=== PATIENT | female | born 1995 | race Caucasian/White ===

== ENCOUNTER 2019-01-04 18:30 | Emergency (ER) | payer BC ==
[2019-01-04 18:42] VITALS: TEMP 98.3
[2019-01-04 19:55] LABS: Basophils # (A) 0.1 k/uL (0-0.2); Basophils % (A) 1 %; Eosinophils # (A) 0.2 k/uL (0-0.7); Eosinophils % (A) 3 %; HCT 45.4 % (34.0-46.0); HGB 15.2 gm/dL (11.4-16.0); Lymphocytes # (A) 2.8 k/uL (1.0-4.8); Lymphocytes % (A) 44 %; MCH 30.3 pg (25.0-35.0); MCHC 33.4 g/dL (31.0-37.0); MCV 90.7 fL (80.0-100.0); Mean Platelet Volume 6.7; Monocytes # (A) 0.3 k/uL (0-1.0); Monocytes % (A) 4 %; Neutrophils % (A) 47 %; Platelet Count 263 k/uL (150-450); RBC 5.01 m/uL (3.80-5.40); RDW 12.4 % (11.5-15.5); WBC 6.4 k/uL (3.8-10.6)
[2019-01-04 20:03] LABS: ALT 20 U/L (9-52); AST 19 U/L (14-36); Albumin 5.5 g/dL (3.5-5.0); Alkaline Phosphatase 53 U/L (38-126); Anion Gap 12 mmol/L; Blood Urea Nitrogen 16 mg/dL (7-17); Calcium 10.7 mg/dL (8.4-10.2); Carbon Dioxide 24 mmol/L (22-30); Chloride 107 mmol/L (98-107); Glucose 78 mg/dL (74-99); Potassium 3.8 mmol/L (3.5-5.1); Sodium 143 mmol/L (137-145)
[2019-01-04 20:29] VITALS: RESP 16
--- NOTE | 2019-01-04 20:31 | US ---
EXAMINATION TYPE: US transvaginal DATE OF EXAM: 01/04/2019 COMPARISON: NONE CLINICAL HISTORY: LLQ pain. Pt states LLQ pain x 3 weeks TECHNIQUE: Transvaginal (TV). Transvaginal sonographic images of the pelvis were acquired. Date of LMP: 12/25/2018 EXAM MEASUREMENTS: Uterus: 7.9 x 3.4 x 3.9 cm Endometrial Stripe: 0.3 cm Right Ovary: 3.2 x 1.9 x 2.8 cm Left Ovary: 3.5 x 2.1 x 2.0 cm 1. Uterus: Anteverted wnl 2. Endometrium: wnl 3. Right Ovary: wnl 4. Left Ovary: wnl Spectral, color and waveform doppler imaging shows good arterial and venous flow within the ovaries ; there is no evidence for ovarian torsion. 5. Bilateral Adnexa: wnl 6. Posterior cul-de-sac: wnl No abnormality visualized to account for pt's symptoms IMPRESSION: Negative transvaginal pelvic sonogram. No evidence of ovarian torsion. no adnexal mass or free fluid.
[2019-01-04 21:09] LABS: Amorphous Sediment,Urine Rare /hpf; Appearance,Urine Cloudy (Clear); Bacteria,Urine Rare /hpf; Bilirubin,Urine Negative (Negative); Blood,Urine Trace (Negative); Color,Urine Yellow; Glucose,Urine (UA) Negative (Negative); Hyaline Casts,Urine 3 /lpf (0-2); Ketones,Urine Negative (Negative); Leukocyte Esterase,Urine Moderate (Negative); Mucus,Urine Rare /hpf; Nitrite,Urine Negative (Negative); PH, Urine 5.5 (5.0-8.0); Protein,Urine Negative (Negative); RBC,Urine 3 /hpf (0-5); Specific Gravity,Urine 1.014 (1.001-1.035); Squamous Epithelial Cell,Urine 11 /hpf (0-4); Urobilinogen,Urine <2.0 mg/dL (<2.0); WBC,Urine 47 /hpf (0-5)
[2019-01-04] MEDS ORDERED: AZITHROMYCIN 500 MG TAB PO STA (21:56)
--- NOTE | 2019-01-04 21:56 | ED ---
Abdominal Pain HPI - General Chief Complaint: Abdominal Pain Stated Complaint: Pelvic Pain Source: patient Mode of arrival: ambulatory Limitations: no limitations - History of Present Illness Initial Comments: 23yo female presenting today for cc of left pelvic pain x 3 weeks. Pt states she has been having pelvic pain on the left side for 3 weeks. She states it feels like ovarian pain. She states it comes and goes and radiates to the back at times. Pt states since her last period she has had discharge, that is brown in color lasting the past 10 days. pt denies pain with sex, dysuria, urgency frequency, hematuria, flank pain, nausea, vomiting, upper abdominal pain, fever, chills night sweats. Pt state she has had the same sexual partner for the past 2 years. She states she has not concerned for infidelity. Remaining review of systems negative, Patient denies any recent shortness of breath, chest pain, numbness or tingling, constipation or diarrhea, headaches or visual changes, or any other complaints. - Related Data Home Medications Medication Instructions Recorded Confirmed Albuterol Inhaler [Ventolin Hfa 2 puff INHALATION RT-Q6H PRN 01/04/19 01/04/19 Inhaler] Vitamin C/Biotin [Hair, Skin and 1 tab PO DAILY 01/04/19 01/04/19 Nails] Allergies Allergy/AdvReac Type Severity Reaction Status Date / Time Penicillins Allergy Anaphylaxis Verified 01/04/19 20:44 ibuprofen [From Motrin] AdvReac Nausea & Verified 01/04/19 20:44 Vomiting Review of Systems ROS Statement: Those systems with pertinent positive or pertinent negative responses have been documented in the HPI. ROS Other: All systems not noted in ROS Statement are negative. Past Medical History Past Medical History: Asthma History of Any Multi-Drug Resistant Organisms: None Reported Past Surgical History: Adenoidectomy, Tonsillectomy Past Psychological History: Anxiety, Depression Smoking Status: Current every day smoker Past Alcohol Use History: None Reported Past Drug Use History: Marijuana General Exam - General Exam Comments Initial Comments: General: The patient is awake and alert, in no distress, and does not appear acutely ill. Eye: Pupils are equal, round and reactive to light, extra-ocular movements are intact. No nystagmus. There is normal conjunctiva bilaterally. No signs of icterus. Ears, nose, mouth and throat: There are moist mucous membranes and no oral lesions. Neck: The neck is supple, there is no tenderness or JVD. Cardiovascular: There is a regular rate and rhythm. No murmur, rub or gallop is appreciated. Respiratory: Lungs are clear to auscultation, respirations are non-labored, breath sounds are equal. No wheezes, stridor, rales, or rhonchi. Gastrointestinal: Soft, non-distended, non-tender abdomen without masses or organomegaly noted. Mild left lower pelvic pain. There is no rebound or guarding present. No CVA tenderness. Bowel sounds are unremarkable. examination: No external lesions, vaginal mucosa pink well rugated. Small amount of discharge in the vault. No cervical motion or adnexal tenderness. No obvious cervical lesion. No cervical or adnexal masses palpated. Musculoskeletal: Normal ROM, no tenderness. Strength 5/5. Sensation intact. Radial pulses equal bilaterally 2+. Neurological: A&O x 3. CN II-XII intact, There are no obvious motor or sensory deficits. Coordination appears grossly intact. Speech is normal. Skin: Skin is warm and dry and no rashes or lesions are noted. Psychiatric: Cooperative, appropriate mood & affect, normal judgment. Limitations: no limitations Course Vital Signs 01/04/19 01/04/19 01/04/19 18:39 20:27 22:14 Temperature 98.3 F Pulse Rate 78 69 60 Respiratory 20 16 16 Rate Blood Pressure 130/85 120/93 134/111 O2 Sat by Pulse 99 100 98 Oximetry Medical Decision Making - Medical Decision Making Well-appearing 23-year-old female presented for left pelvic pain. Patient states she has had discharge since her menses 10 days ago. On physical examination patient is mild tenderness she states she does not really have current pain without deep palpation. There is no abdominal tenderness. No rigidity or guarding. No adnexal tenderness on examination or cervical motion. No palpable masses. Small amount of discharge in vault, there is no odor. appears physiological. Swabs for STI pending. Ultrasound of the pelvis with Doppler revealed no acute abnormalities no evidence of abscess no ovarian torsion or ectopic . Urine hCG negative. At this time is unclear the etiology of left lower pelvic pain. Patient is instructed to follow-up with [facility] primary care provider. Pt was given 1g of azithromycin. WIll treat remaining STI pending results given anaphylaxtic allergy to PCNs. Patient is agreeable with plan and outpatient f/u. Case discussed with Dr. Smallwood prior to discharge. - Lab Data Result diagrams: 01/04/19 19:34 01/04/19 19:34 Lab Results 01/04/19 01/04/19 01/04/19 Range/Units 19:34 19:34 19:39 WBC 6.4 (3.8-10.6) k/uL RBC 5.01 (3.80-5.40) m/uL Hgb 15.2 (11.4-16.0) gm/dL Hct 45.4 (34.0-46.0) % MCV 90.7 (80.0-100.0) fL MCH 30.3 (25.0-35.0) pg MCHC 33.4 (31.0-37.0) g/dL RDW 12.4 (11.5-15.5) % Plt Count 263 (150-450) k/uL Neutrophils % 47 % Lymphocytes % 44 % Monocytes % 4 % Eosinophils % 3 % Basophils % 1 % Neutrophils # 3.0 (1.3-7.7) k/uL Lymphocytes # 2.8 (1.0-4.8) k/uL Monocytes # 0.3 (0-1.0) k/uL Eosinophils # 0.2 (0-0.7) k/uL Basophils # 0.1 (0-0.2) k/uL Sodium 143 (137-145) mmol/L Potassium 3.8 (3.5-5.1) mmol/L Chloride 107 (98-107) mmol/L Carbon Dioxide 24 (22-30) mmol/L Anion Gap 12 mmol/L BUN 16 (7-17) mg/dL Creatinine 0.69 (0.52-1.04) mg/dL Est GFR (CKD-EPI)AfAm >90 (>60 ml/min/1.73 sqM) Est GFR (CKD-EPI)NonAf >90 (>60 ml/min/1.73 sqM) Glucose 78 (74-99) mg/dL Calcium 10.7 H (8.4-10.2) mg/dL Total Bilirubin 1.0 (0.2-1.3) mg/dL AST 19 (14-36) U/L ALT 20 (9-52) U/L Alkaline Phosphatase 53 (38-126) U/L Total Protein 9.0 H (6.3-8.2) g/dL Albumin 5.5 H (3.5-5.0) g/dL Urine Color Urine Appearance (Clear) Urine pH (5.0-8.0) Ur Specific [place] (1.001-1.035) Urine Protein (Negative) Urine Glucose (UA) (Negative) Urine Ketones (Negative) Urine Blood (Negative) Urine Nitrite (Negative) Urine Bilirubin (Negative) Urine Urobilinogen (<2.0) mg/dL Ur Leukocyte Esterase (Negative) Urine RBC (0-5) /hpf Urine WBC (0-5) /hpf Ur Squamous Epith Cells (0-4) /hpf Amorphous Sediment (None) /hpf Urine Bacteria (None) /hpf Hyaline Casts (0-2) /lpf Urine Mucus (None) /hpf Urine HCG, Qual Not Detected (Not Detectd) 01/04/19 Range/Units 19:39 WBC (3.8-10.6) k/uL RBC (3.80-5.40) m/uL Hgb (11.4-16.0) gm/dL Hct (34.0-46.0) % MCV (80.0-100.0) fL MCH (25.0-35.0) pg MCHC (31.0-37.0) g/dL RDW (11.5-15.5) % Plt Count (150-450) k/uL Neutrophils % % Lymphocytes % % Monocytes % % Eosinophils % % Basophils % % Neutrophils # (1.3-7.7) k/uL Lymphocytes # (1.0-4.8) k/uL Monocytes # (0-1.0) k/uL Eosinophils # (0-0.7) k/uL Basophils # (0-0.2) k/uL Sodium (137-145) mmol/L Potassium (3.5-5.1) mmol/L Chloride (98-107) mmol/L Carbon Dioxide (22-30) mmol/L Anion Gap mmol/L BUN (7-17) mg/dL Creatinine (0.52-1.04) mg/dL Est GFR (CKD-EPI)AfAm (>60 ml/min/1.73 sqM) Est GFR (CKD-EPI)NonAf (>60 ml/min/1.73 sqM) Glucose (74-99) mg/dL Calcium (8.4-10.2) mg/dL Total Bilirubin (0.2-1.3) mg/dL AST (14-36) U/L ALT (9-52) U/L Alkaline Phosphatase (38-126) U/L Total Protein (6.3-8.2) g/dL Albumin (3.5-5.0) g/dL Urine Color Yellow Urine Appearance Cloudy H (Clear) Urine pH 5.5 (5.0-8.0) Ur Specific [place] 1.014 (1.001-1.035) Urine Protein Negative (Negative) Urine Glucose (UA) Negative (Negative) Urine Ketones Negative (Negative) Urine Blood Trace H (Negative) Urine Nitrite Negative (Negative) Urine Bilirubin Negative (Negative) Urine Urobilinogen <2.0 (<2.0) mg/dL Ur Leukocyte Esterase Moderate H (Negative) Urine RBC 3 (0-5) /hpf Urine WBC 47 H (0-5) /hpf Ur Squamous Epith Cells 11 H (0-4) /hpf Amorphous Sediment Rare H (None) /hpf Urine Bacteria Rare H (None) /hpf Hyaline Casts 3 H (0-2) /lpf Urine Mucus Rare H (None) /hpf Urine HCG, Qual (Not Detectd) Disposition Clinical Impression: Pelvic pain Disposition: HOME SELF-CARE Condition: Good Instructions (If sedation given, give patient instructions): Pelvic Pain in Women (ED) Additional Instructions: Please use medication as discussed. Please follow-up with family doctor in the next 2 days.. Please return to emergency room if the symptoms increase or worsen or for any other concerns. Is patient prescribed a controlled substance at d/c from ED?: No Referrals: None,Stated [Primary Care Provider] - 1-[address] [facility] [NON-STAFF] - 1-2 days Time of Disposition: 21:39
[2019-01-04 22:16] VITALS: BP 134/111; PULSE 60
== END 2019-01-04 22:19 | disposition home or self-care (01) ==
LOC: EC 18:30
DX: R10.2 Pelvic and perineal pain (principal); M54.9 Dorsalgia, unspecified; J45.909 Unspecified asthma, uncomplicated; F17.200 Nicotine dependence, unspecified, uncomplicated; Z88.0 Allergy status to penicillin; Z88.6 Allergy status to analgesic agent
CPT/HCPCS: 36415; 76830; 80053; 81001; 81025; 85025; 87491; 87591; 87808; 93975; 99284

== ENCOUNTER → 2023-09-12 | Outpatient (CLI) | payer OTHER ==
[2023-09-12 20:26] LABS: ALT 6 U/L (8-44); AST 15 U/L (13-35); Albumin 3.8 g/dL (3.8-4.9); Albumin/Globulin Ratio 1.52 Ratio (1.60-3.17); Alkaline Phosphatase 56 U/L (41-126); Blood Urea Nitrogen 9.6 mg/dL (9.0-27.0); Calcium 9.2 mg/dL (8.7-10.3); Carbon Dioxide 24.2 mmol/L (21.6-31.8); Chloride 101 mmol/L (96-109); Globulin 2.5 g/dL (1.6-3.3); Glucose 91 mg/dL (70-110); Magnesium 1.8 mg/dL (1.5-2.4); Potassium 4.1 mmol/L (3.5-5.5); Sodium 136 mmol/L (135-145); Total Bilirubin 0.3 mg/dL (0.3-1.2); Total Protein 6.3 g/dL (6.2-8.2)
== END | disposition home or self-care (01) ==
LOC: LABWHC1 13:44
PROVIDERS: ATTEND Obstetrics & Gynecology
DX: Z33.1 Pregnant state, incidental (principal); G43.909 Migraine, unspecified, not intractable, without status migrainosus
CPT/HCPCS: 36415; 80053; 83735; 84630

== ENCOUNTER 2023-12-06 17:00 | Inpatient (IN) | payer OTHER ==
[2023-12-06] MEDS ORDERED: CARBOPROST TROMETHAMINE 250 MCG/ML 1 ML AMP IM PRN (19:06)
[2023-12-06] MEDS ORDERED: TERBUTALINE 1 MG/ML VIAL SQ PRN (19:06)
[2023-12-06] MEDS ORDERED: miSOPROStoL 200 MCG TAB PO PRN (19:06)
[2023-12-06] MEDS ORDERED: TRANEXAMIC 1,000 MG/100ML-NACL 1,000 MG in EMPTY BAG 1 BAG IV PRN (19:06)
[2023-12-06] MEDS ORDERED: OXYTOCIN 10 UNIT/ML 1 ML VIAL IM PRN (19:06)
[2023-12-06] MEDS ORDERED: METHYLERGONOVINE 0.2 MG/ML 1 ML AMP IM PRN (19:06)
[2023-12-06] MEDS: LACTATED RINGERS 1,000 ML IV SCH (19:22)
[2023-12-06 19:33] LABS: Basophils % (A) 0 %; Eosinophils # (A) 0.1 k/uL (0-0.7); Eosinophils % (A) 1 %; HCT 35.4 % (34.0-46.0); HGB 11.5 gm/dL (11.4-16.0); Hypochromasia Slight; Lymphocytes # (A) 2.5 k/uL (1.0-4.8); Lymphocytes % (A) 20 %; MCH 28.3 pg (25.0-35.0); MCHC 32.6 g/dL (31.0-37.0); MCV 86.9 fL (80.0-100.0); Mean Platelet Volume 7.5; Monocytes # (A) 0.6 k/uL (0-1.0); Monocytes % (A) 5 %; Neutrophils % (A) 72 %; Platelet Count 287 k/uL (150-450); RBC 4.08 m/uL (3.80-5.40); RDW 13.8 % (11.5-15.5); WBC 12.5 k/uL (3.8-10.6)
[2023-12-06] MEDS ORDERED: NALBUPHINE 10 MG/ML (10 ML MDV) IV PRN (19:34)
--- NOTE | 2023-12-06 20:46 | P.HPOB ---
History of Present Illness H&P Date: 12/06/23 Chief Complaint: Labor at 39-5/7 weeks This is a 28-year-old 2 para 0010 woman who is admitted at 39-5/7 weeks gestation in spontaneous active labor. She her estimated due date is 12/07/2023 based on LMP consistent with first trimester ultrasound. She began having regular painful contractions earlier in the day that have put progress. While observed in labor and delivery triage her cervix progressed from 3-5 cm and her contractions were regular. She was therefore admitted. Her has been complicated by migraine headaches and anxiety. Laboratory data: Blood type O positive, antibody screen negative, rubella immune, VDRL nonreactive, hepatitis B surface antigen negative, hepatitis C negative, HIV negative, RPR negative, gonorrhea and clinic cultures negative, GTT within normal limits, group B strep negative Obstetric history: Missed and 2022. Spontaneous. Past medical history is ID, asthma, migraine headaches, ADHD. Next past surgical history tonsils and adenoidectomy. Family history noncontributory Social history: she is single and the father of baby's name is Bentley who is involved. She does vape. Review of Systems All systems: negative Past Medical History Past Medical History: Asthma Additional Past Medical History / Comment(s): migranes History of Any Multi-Drug Resistant Organisms: None Reported Past Surgical History: Adenoidectomy, Tonsillectomy Past Psychological History: Anxiety, Depression Smoking Status: Never smoker, Vaper Past Alcohol Use History: None Reported Past Drug Use History: None Reported, Marijuana Medications and Allergies Home Medications Medication Instructions Recorded Confirmed Type No Known Home Medications 12/06/23 12/06/23 History Allergies Allergy/AdvReac Type Severity Reaction Status Date / Time Penicillins Allergy Anaphylaxis Verified 12/06/23 17:16 ibuprofen [From Motrin] AdvReac Nausea & Verified 12/06/23 17:16 Vomiting Exam Vital Signs Temp Pulse Resp BP Pulse Ox 12/06/23 19:06 96.5 F L 79 16 107/72 100 12/06/23 17:15 98.1 F 86 16 120/77 98 Intake and Output 12/06/23 12/06/23 12/06/23 06:59 14:59 22:59 Other: Weight 60.781 kg Targeted physical exam is performed: This is a visibly gravid, actively laboring female. On pelvic examination the cervix is 7 cm dilated, 90% effaced and the vertex is in the 0 station. Artificial rupture of membranes is undertaken and clear fluid is noted. She is mark every 2 minutes spontaneously and heart tones are category 1. Results Result Diagrams: 12/06/23 19:04 Abnormal Lab Results - Last 24 Hours (Table) 12/06/23 Range/Units 19:04 WBC 12.5 H (3.8-10.6) k/uL Neutrophils # 9.0 H (1.3-7.7) k/uL Assessment and Plan (1) Spontaneous onset of labor Current Visit: Yes Status: Acute Code(s): HNK8563 - SNOMED Code(s): 42483217 (2) Term Current Visit: Yes Status: Acute Code(s): Z34.90 - ENCNTR FOR SUPRVSN OF NORMAL , UNSP, UNSP TRIMESTER SNOMED Code(s): 08889239 (3) Asthma Current Visit: Yes Status: Acute Code(s): J45.909 - UNSPECIFIED ASTHMA, UNCOMPLICATED SNOMED Code(s): 152954026 Plan: 28-year-old 2 para 0010 woman admitted at 39-5/7 weeks gestation in spontaneous active labor. status currently reassuring. She is group B strep negative and Rh+. Anticipate normal spontaneous vaginal delivery.
[2023-12-07] MEDS: OXYTOCIN 30 UNITS/500 ML NS 30 UNIT in SALINE 1 500ML.BAG IV SCH (00:17)
[2023-12-07] MEDS ORDERED: HYDROCORTISONE 2.5% RECTAL CREAM 30 GM TUBE RECTAL PRN (00:31)
[2023-12-07] MEDS ORDERED: diphenhydrAMINE 50 MG CAP PO PRN (00:31)
[2023-12-07] MEDS ORDERED: diphenhydrAMINE 50 MG/ML 1 ML VIAL IVP PRN ×2 (00:31)
[2023-12-07] MEDS ORDERED: LANOLIN CREAM 1 GM TUBE TOPICAL PRN (00:31)
[2023-12-07] MEDS ORDERED: SIMETHICONE 80 MG CHEWABLE PO PRN (00:31)
[2023-12-07] MEDS ORDERED: diphenhydrAMINE ELIXIR 25 MG/10 ML CUP PO PRN (00:31)
[2023-12-07] MEDS ORDERED: diphenhydrAMINE 25 MG CAP PO PRN (00:31)
[2023-12-07] MEDS ORDERED: ZOLPIDEM 5 MG TAB PO PRN (00:31)
--- NOTE | 2023-12-07 00:31 | P.PROBDLV ---
Vaginal Delivery Note - . Vaginal Delivery Note: Findings: Female in the vertex left occiput anterior position with Apgars of 8 at 1 minute and 9 at 5 minutes weighing 7 lbs. 1 oz., 3220 g. Intact, three-vessel cord placenta with some calcifications of the membranes. Asymmetric second-degree perineal laceration involving the right vulva. EBL approximately 250 mL's. Delivery summary: This is a 28-year-old 2 para 0010 woman who was admitted in spontaneous active labor at 39-5/7 weeks gestation. She then underwent an unremarkable . Following admission she was 7 cm dilated and underwent artificial rupture of membranes. She then requested an epidural anesthetic. By the time was placed she was 9+ centimeters dilated. She began pushing however had a dense epidural with no sensation therefore she was allowed to labor down for some time. When she was initially pushing heart tones were category 2 however results category 1 with relaxation. Approximately half an hour later she did begin to develop strong urge to push. Infant was then at the +1 station. She commenced pushing with excellent maternal effort. She did have some variable heart rate decelerations but excellent progress. When she was she was repositioned, prepped and draped in the dorsal modified Thony position. With additional maternal effort the head delivered from the left occiput anterior position. The anterior followed by the posterior shoulders were delivered without difficulty and the rest the was delivered onto the field. The nose and mouth were bulb suctioned and the infant was placed on the maternal abdomen. Eventually the cord was clamped and cut. Apgars were 8 at 1 minute and 9 at 5 minutes and weight was 7 lbs. 1 oz. The perineum was inspected and a second-degree asymmetric laceration was noted. This was infused with lidocaine and repaired with 3-0 Vicryl suture in the usual fashion. A second 3-0 Vicryl suture was utilized to reapproximate the right vulvar tissue. An intact, three-vessel cord placenta was then expressed in the vagina was further inspected and no additional lacerations were noted. The uterus was massaged and was noted to be firm below the level of the umbilicus. All counts were correct and both mother and infant were doing well post delivery in the room.
[2023-12-07] MEDS: LIDOCAINE 0.5% (PF) 5 MG/ML (50 ML SDV) SQ PRN (00:57)
[2023-12-07] MEDS: ACETAMINOPHEN TAB 325 MG TAB PO PRN (00:59)
[2023-12-07] MEDS: BENZOCAINE/MENTHOL SPRAY 1 GM/SPRAY AEROSOL TOPICAL PRN (01:03)
[2023-12-07] MEDS: IBUPROFEN 600 MG TAB PO PRN (05:18)
[2023-12-07] MEDS: SENNOSIDES-DOCUSATE SODIUM 1 EACH TAB PO SCH (08:02)
[2023-12-08 03:04] VITALS: BP 126/80; PULSE 77; RESP 12; TEMP 97.6
== END 2023-12-08 02:35 | disposition home or self-care (01) | DRG 560 ==
LOC: FBPOP 17:00 → 4FBP 18:49
PROVIDERS: ADMIT Obstetrics & Gynecology; ATTEND Obstetrics & Gynecology
PROC: 10E0XZZ Delivery of Products of Conception, External Approach (ICD-10-PCS; principal; 2023-12-07)
PROC: 0KQM0ZZ Repair Perineum Muscle, Open Approach (ICD-10-PCS; 2023-12-07)
PROC: 10907ZC Drainage of Amniotic Fluid, Therapeutic from Products of Conception, Via Natural or Artificial Opening (ICD-10-PCS; 2023-12-07)
PROC: 4A0HXCZ Measurement of Products of Conception, Cardiac Rate, External Approach (ICD-10-PCS; 2023-12-07)
DX: O76 Abnormality in fetal heart rate and rhythm complicating labor and delivery (principal); O70.1 Second degree perineal laceration during delivery; F17.290 Nicotine dependence, other tobacco product, uncomplicated; F32.A Depression, unspecified; F41.9 Anxiety disorder, unspecified; J45.909 Unspecified asthma, uncomplicated; G43.909 Migraine, unspecified, not intractable, without status migrainosus; O99.334 Smoking (tobacco) complicating childbirth; O99.344 Other mental disorders complicating childbirth; O99.354 Diseases of the nervous system complicating childbirth; O99.52 Diseases of the respiratory system complicating childbirth; Z37.0 Single live birth; Z3A.39 39 weeks gestation of pregnancy; Z88.0 Allergy status to penicillin
CPT/HCPCS: 59025; 85025; 86850; 86900; 86901; 99213

== ENCOUNTER 2023-12-11 11:52 | Emergency (ER) | payer OTHER ==
[2023-12-11 12:02] VITALS: RESP 18
--- NOTE | 2023-12-11 12:17 | ED ---
Headache HPI - General Source: patient, RN notes reviewed, old records reviewed Mode of arrival: ambulatory Limitations: no limitations <Alex Hendrix - Last Filed: 12/11/23 12:16> <Ivan Anders - Last Filed: 12/11/23 16:13> - General Chief Complaint: Headache Stated Complaint: Spinal Headache Time Seen by Provider: 12/11/23 12:02 - History of Present Illness Initial Comments: Quick [id number] female presents emergency department complaint of a headache. Patient states that she recently had delivery states that she had an epidural states that she has been dealing with a spinal headache. Patient states it is positional worse when she sits upright. Patient states that she notes that is getting better but has worsened. She states pain is tolerable at this point. (Alex Hendrix) 28-year-old female 4 days status post vaginal delivery with epidural. Patient has had headaches since that time. No vomiting. Headache does seem to be positional. She has no right upper quadrant pain, no lower extremity pain or swelling. No fever. (Ivan Anders) - Related Data Previous Rx's Medication Instructions Recorded Nitrofurantoin Monohyd/M-Cryst 100 mg PO Q12HR #14 cap 12/11/23 [Macrobid] Allergies Allergy/AdvReac Type Severity Reaction Status Date / Time Penicillins Allergy Anaphylaxis Verified 12/11/23 12:02 Review of Systems ROS Other: All systems not noted in ROS Statement are negative. <Alex Hendrix - Last Filed: 12/11/23 12:16> ROS Other: All systems not noted in ROS Statement are negative. <Ivan Anders - Last Filed: 12/11/23 16:13> ROS Statement: Those systems with pertinent positive or pertinent negative responses have been documented in the HPI. Past Medical History Past Medical History: Asthma Additional Past Medical History / Comment(s): migranes History of Any Multi-Drug Resistant Organisms: None Reported Past Surgical History: Adenoidectomy, Tonsillectomy Past Psychological History: Anxiety, Depression Smoking Status: Never smoker, Vaper Past Alcohol Use History: None Reported Past Drug Use History: None Reported, Marijuana <Alex Hendrix - Last Filed: 12/11/23 12:16> General Exam Limitations: no limitations <Dedoe,Alex M - Last Filed: 12/11/23 12:16> General appearance: alert, in no apparent distress Head exam: Present: atraumatic, normocephalic Eye exam: Present: normal appearance, PERRL ENT exam: Present: normal exam Neck exam: Present: normal inspection. Absent: tenderness, meningismus Respiratory exam: Present: normal lung sounds bilaterally. Absent: respiratory distress, wheezes Cardiovascular Exam: Present: regular rate, normal rhythm GI/Abdominal exam: Present: soft. Absent: distended, tenderness, guarding Extremities exam: Present: normal inspection, normal capillary refill. Absent: pedal edema, calf tenderness Neurological exam: Present: alert, oriented X3, CN II-XII intact, normal gait. Absent: motor sensory deficit Psychiatric exam: Present: normal affect, normal mood Skin exam: Present: warm, dry, intact <Ivan Anders - Last Filed: 12/11/23 16:13> - General Exam Comments Initial Comments: Visual Physical Exam Vital signs reviewed General: Well-appearing, nontoxic, no acute distress. Head: Normocephalic, atraumatic Eyes: PERRLA, EOMI ENT: Airway patent Chest: Nonlabored breathing Skin: No visual rash, normal skin tone Neuro: Alert and oriented 3 Musculoskeletal: No gross abnormalities (Alex Hendrix) Course Vital Signs 12/11/23 12/11/23 11:58 14:59 Temperature 98.0 F 98.1 F Pulse Rate 94 82 Respiratory 18 18 Rate Blood Pressure 135/88 126/76 O2 Sat by Pulse 100 99 Oximetry Medical Decision Making <Alex Hendrix - Last Filed: 12/11/23 12:16> - Lab Data Result diagrams: 12/11/23 13:26 12/11/23 13:26 <Ivan Anders N - Last Filed: 12/11/23 16:13> - Medical Decision Making I completed the quick note portion of this chart signed Alex Hendrix PA-C (Alex Hendrix) Was pt. sent in by a medical professional or institution (VIVIANA Lopez, STRAW HAT PLUNGER OPERATOR, urgent care, hospital, or retirement...) When possible be specific @ -No Did you speak to anyone other than the patient for history (EMS, parent, family, police, friend...)? What history was obtained from this source @ -No Did you review nursing and triage notes (agree or disagree)? Why? @ -I reviewed and agree with nursing and triage notes Were old charts reviewed (outside hosp., previous admission, EMS record, old EKG, old radiological studies, urgent care reports/EKG's, retirement records)? Report findings @ -No old charts were reviewed Differential Diagnosis (chest pain, altered mental status, abdominal pain women, abdominal pain men, vaginal bleeding, weakness, fever, dyspnea, syncope, headache, dizziness, GI bleed, back pain, seizure, CVA, palpatations, mental health, musculoskeletal)? @ -Differential Headache: Spinal headache, migraine, tension, cluster, carbon monoxide, central venous thrombosis, pension karma temporal arteritis, acute closure glaucoma, intercranial hemorrhage, mastoiditis, sinusitis, head injury, this is not meant to be an all-inclusive list. EKG interpreted by me (3pts min.). @ -As above X-rays interpreted by me (1pt min.). @ -None done CT interpreted by me (1pt min.). @ -None done U/S interpreted by me (1pt. min.). @ -None done What testing was considered but not performed or refused? (CT, X-rays, U/S, labs)? Why? @ -None What meds were considered but not given or refused? Why? @ -None Did you discuss the management of the patient with other professionals (professionals i.e. , PA, STRAW HAT PLUNGER OPERATOR, lab, RT, psych nurse, medical social consultant, line controller, teacher, executive vice president and chief financial officer, rn case management)? Give summary @ -No Was smoking cessation discussed for >3mins.? @ -No Was critical care preformed (if so, how long)? @ -No Were there social determinants of health that impacted care today? How? (Homelessness, low income, unemployed, alcoholism, drug addiction, transportation, low edu. Level, literacy, decrease access to med. care, [facility], rehab)? @ -No Was there de-escalation of care discussed even if they declined (Discuss DNR or withdrawal of care, Hospice)? DNR status @ -No What co-morbidities impacted this encounter? (DM, HTN, Smoking, COPD, CAD, Cancer, CVA, ARF, Chemo, Hep., AIDS, mental health diagnosis, sleep apnea, morbid obesity)? @ -Recent vaginal delivery with epidural Was patient admitted / discharged? Hospital course, mention meds given and route, prescriptions, significant lab abnormalities, going to OR and other pertinent info. @ -[28-year-old female with headache, positional, likely spinal headache. Patient is otherwise well-appearing. She has normal CBC, normal CMP. Given IV fluid and IV caffeine with significant improvement in headache. Patient is able to stand with headache but it is bearable. I did offer anesthesia consult for blood patch but patient would prefer to wait at this time and return if it should again worsen.. She does have nitrite positive urine and will be started on antibiotics for UTI. Return parameters discussed. Undiagnosed new problem with uncertain prognosis? @ -No Drug Therapy requiring intensive monitoring for toxicity (Heparin, Nitro, Insul in, Cardizem)? @ -No Were any procedures done? @ -No Diagnosis/symptom? @ -[Headache Acute, or Chronic, or Acute on Chronic? @ acute Uncomplicated (without systemic symptoms) or Complicated (systemic symptoms)? @ -Default Side effects of treatment? @ -No Exacerbation, Progression, or Severe Exacerbation? @ -No Poses a threat to life or bodily function? How? (Chest pain, [place], [place], pneumonia, PE, COPD, DKA, ARF, appy, cholecystitis, CVA, Diverticulitis, Homicidal, Suicidal, threat to staff... and all critical care pts) @ -No (Ivan Anders) - Lab Data Lab Results 12/11/23 12/11/23 12/11/23 Range/Units 13:26 13:26 13:43 WBC 10.4 (3.8-10.6) k/uL RBC 4.03 (3.80-5.40) m/uL Hgb 11.1 L (11.4-16.0) gm/dL Hct 35.6 (34.0-46.0) % MCV 88.4 (80.0-100.0) fL MCH 27.5 (25.0-35.0) pg MCHC 31.1 (31.0-37.0) g/dL RDW 14.2 (11.5-15.5) % Plt Count 367 (150-450) k/uL MPV 7.3 Neutrophils % 70 % Lymphocytes % 19 % Monocytes % 4 % Eosinophils % 5 % Basophils % 1 % Neutrophils # 7.2 (1.3-7.7) k/uL Lymphocytes # 2.0 (1.0-4.8) k/uL Monocytes # 0.4 (0-1.0) k/uL Eosinophils # 0.5 (0-0.7) k/uL Basophils # 0.1 (0-0.2) k/uL Hypochromasia Slight Sodium 140 (137-145) mmol/L Potassium 4.0 (3.5-5.1) mmol/L Chloride 107 (98-107) mmol/L Carbon Dioxide 24 (22-30) mmol/L Anion Gap 9 mmol/L BUN 13 (7-17) mg/dL Creatinine 0.67 (0.52-1.04) mg/dL Est GFR (CKD-EPI)AfAm >90 (>60 ml/min/1.73 sqM) Est GFR (CKD-EPI)NonAf >90 (>60 ml/min/1.73 sqM) Glucose 75 (74-99) mg/dL Calcium 9.2 (8.4-10.2) mg/dL Total Bilirubin 0.3 (0.2-1.3) mg/dL AST 24 (14-36) U/L ALT 15 (4-34) U/L Alkaline Phosphatase 111 (38-126) U/L Total Protein 7.0 (6.3-8.2) g/dL Albumin 3.8 (3.5-5.0) g/dL Urine Color Colorless Urine Appearance Clear (Clear) Urine pH 6.5 (5.0-8.0) Ur Specific [place] 1.013 (1.001-1.035) Urine Protein Negative (Negative) Urine Glucose (UA) Negative (Negative) Urine Ketones Negative (Negative) Urine Blood Small H (Negative) Urine Nitrite Positive H (Negative) Urine Bilirubin Negative (Negative) Urine Urobilinogen <2.0 (<2.0) mg/dL Ur Leukocyte Esterase Small H (Negative) Urine RBC 10 H (0-5) /hpf Urine WBC 11 H (0-5) /hpf Ur Squamous Epith Cells 1 (0-4) /hpf Urine Mucus Rare H (None) /hpf Disposition <Alex Hendrix - Last Filed: 12/11/23 12:16> Is patient prescribed a controlled substance at d/c from ED?: No Time of Disposition: 16:12 <Ivan Anders Andrea - Last Filed: 12/11/23 16:13> Clinical Impression: Headache, Headache following lumbar puncture Disposition: HOME SELF-CARE Condition: Fair Instructions (If sedation given, give patient instructions): Acute Headache (ED) Additional Instructions: Please drink plenty of fluids. Please monitor symptoms closely and if your symptoms should worsen please return to the emergency department. Prescriptions: Nitrofurantoin Monohyd/M-Cryst [Macrobid] 100 mg PO Q12HR #14 cap Referrals: Melchor Panda MD [Primary Care Provider] - 1-2 days
[2023-12-11] MEDS: SODIUM CHLORIDE 0.9% 1,000 ML IV ONE (13:56)
[2023-12-11 13:57] LABS: Basophils # (A) 0.1 k/uL (0-0.2); Basophils % (A) 1 %; Eosinophils # (A) 0.5 k/uL (0-0.7); Eosinophils % (A) 5 %; HCT 35.6 % (34.0-46.0); HGB 11.1 gm/dL (11.4-16.0); Hypochromasia Slight; Lymphocytes % (A) 19 %; MCH 27.5 pg (25.0-35.0); MCHC 31.1 g/dL (31.0-37.0); MCV 88.4 fL (80.0-100.0); Mean Platelet Volume 7.3; Monocytes # (A) 0.4 k/uL (0-1.0); Monocytes % (A) 4 %; Neutrophils # (A) 7.2 k/uL (1.3-7.7); Neutrophils % (A) 70 %; Platelet Count 367 k/uL (150-450); RBC 4.03 m/uL (3.80-5.40); RDW 14.2 % (11.5-15.5); WBC 10.4 k/uL (3.8-10.6)
[2023-12-11 14:01] LABS: ALT 15 U/L (4-34); AST 24 U/L (14-36); African American GFR (CKD) >90 (>60 ml/min/1.73 sqM); Albumin 3.8 g/dL (3.5-5.0); Alkaline Phosphatase 111 U/L (38-126); Anion Gap 9 mmol/L; Blood Urea Nitrogen 13 mg/dL (7-17); Calcium 9.2 mg/dL (8.4-10.2); Carbon Dioxide 24 mmol/L (22-30); Chloride 107 mmol/L (98-107); Glucose 75 mg/dL (74-99); Non-African American GFR(CKD) >90 (>60 ml/min/1.73 sqM); Sodium 140 mmol/L (137-145); Total Bilirubin 0.3 mg/dL (0.2-1.3)
[2023-12-11 14:14] LABS: Appearance,Urine Clear (Clear); Bilirubin,Urine Negative (Negative); Blood,Urine Small (Negative); Color,Urine Colorless; Glucose,Urine (UA) Negative (Negative); Ketones,Urine Negative (Negative); Leukocyte Esterase,Urine Small (Negative); Mucus,Urine Rare /hpf; Nitrite,Urine Positive (Negative); PH, Urine 6.5 (5.0-8.0); Protein,Urine Negative (Negative); RBC,Urine 10 /hpf (0-5); Specific Gravity,Urine 1.013 (1.001-1.035); Squamous Epithelial Cell,Urine 1 /hpf (0-4); Urobilinogen,Urine <2.0 mg/dL (<2.0); WBC,Urine 11 /hpf (0-5)
[2023-12-11] MEDS: CAFFEINE-SODIUM BENZOATE 500 MG in SODIUM CHLORIDE 0.9% 1,000 ML IVPB ONE (14:54)
[2023-12-11 15:43] VITALS: TEMP 98.1
[2023-12-11 17:08] VITALS: BP 132/70; PULSE 76
== END 2023-12-11 17:07 | disposition home or self-care (01) ==
LOC: EC 11:52
DX: G97.1 Other reaction to spinal and lumbar puncture (principal); F17.290 Nicotine dependence, other tobacco product, uncomplicated; F12.90 Cannabis use, unspecified, uncomplicated; Z88.0 Allergy status to penicillin; Y84.4 Aspiration of fluid as the cause of abnormal reaction of the patient, or of later complication, without mention of misadventure at the time of the procedure
CPT/HCPCS: 36415; 80053; 81001; 85025; 96361; 96365; 99284

== ENCOUNTER 2023-12-14 14:00 | Emergency (ER) | payer OTHER ==
--- NOTE | 2023-12-14 14:47 | ED ---
Headache HPI - General Chief Complaint: Headache Stated Complaint: blood patch - sent from Time Seen by Provider: 12/14/23 14:15 Source: patient, RN notes reviewed Mode of arrival: ambulatory Limitations: no limitations - History of Present Illness Initial Comments: 28-year-old female status post 1 week vaginal delivery with epidural presents emergency department with chief complaint of positional headache. Patient was seen in the emergency department on December 10 with similar complaints, and states that her symptoms improved when she was here, but states that her positional headache has persisted when she returns home. Patient states that she has felt lightheaded and dizzy with head and positional. Patient states that her appetite is slightly depressed. Denies abdominal pain or or urinary symptoms. Patient would like to discuss potential blood patch. - Related Data Home Medications Medication Instructions Recorded Confirmed [id number] Acid 1 cap PO DAILY 12/14/23 12/14/23 [-U Capsule (formulary)] Previous Rx's Medication Instructions Recorded Nitrofurantoin Monohyd/M-Cryst 100 mg PO Q12HR #14 cap 12/11/23 [Macrobid] Allergies Allergy/AdvReac Type Severity Reaction Status Date / Time Penicillins Allergy Anaphylaxis Verified 12/14/23 14:54 ibuprofen [From Motrin] AdvReac Sensitivity, Verified 12/14/23 14:54 previously had bleeding ulcers Review of Systems ROS Statement: Those systems with pertinent positive or pertinent negative responses have been documented in the HPI. ROS Other: All systems not noted in ROS Statement are negative. Past Medical History Past Medical History: Asthma Additional Past Medical History / Comment(s): migranes History of Any Multi-Drug Resistant Organisms: None Reported Past Surgical History: Adenoidectomy, Tonsillectomy Past Psychological History: Anxiety, Depression Smoking Status: Never smoker, Vaper Past Alcohol Use History: None Reported Past Drug Use History: None Reported, Marijuana General Exam Limitations: no limitations General appearance: alert, in no apparent distress Head exam: Present: atraumatic, normocephalic, normal inspection Eye exam: Present: normal appearance, PERRL, EOMI. Absent: scleral icterus, conjunctival injection, periorbital swelling ENT exam: Present: normal exam, mucous membranes moist Neck exam: Present: normal inspection. Absent: tenderness, meningismus, lymphadenopathy Respiratory exam: Present: normal lung sounds bilaterally. Absent: respiratory distress, wheezes, rales, rhonchi, stridor Cardiovascular Exam: Present: regular rate, normal rhythm, normal heart sounds. Absent: systolic murmur, diastolic murmur, rubs, gallop, clicks GI/Abdominal exam: Present: soft, normal bowel sounds. Absent: distended, tenderness, guarding, rebound, rigid Extremities exam: Present: normal inspection, full ROM, normal capillary refill. Absent: tenderness, pedal edema, joint swelling, calf tenderness Back exam: Present: normal inspection, other (mild eccymosis 1 cm noted over the lumbar spine). Absent: paraspinal tenderness, vertebral tenderness Neurological exam: Present: alert, oriented X3, CN II-XII intact Psychiatric exam: Present: normal affect, normal mood Skin exam: Present: warm, dry, intact, normal color. Absent: rash Course Vital Signs 12/14/23 12/14/23 12/14/23 14:09 16:32 18:28 Temperature 97.6 F 98.8 F Pulse Rate 90 88 72 Respiratory 20 18 16 Rate Blood Pressure 117/87 112/80 133/65 O2 Sat by Pulse 98 98 98 Oximetry Medical Decision Making - Medical Decision Making Was pt. sent in by a medical professional or institution (, PA, PIPER INSTALLER, urgent care, hospital, or long term...) When possible be specific @ -No Did you speak to anyone other than the patient for history (EMS, parent, family, police, friend...)? What history was obtained from this source @ -No Did you review nursing and triage notes (agree or disagree)? Why? @ -I reviewed and agree with nursing and triage notes Were old charts reviewed (outside hosp., previous admission, EMS record, old EKG, old radiological studies, urgent care reports/EKG's, long term records)? Report findings @ -No old charts were reviewed Differential Diagnosis (chest pain, altered mental status, abdominal pain women, abdominal pain men, vaginal bleeding, weakness, fever, dyspnea, syncope, headache, dizziness, GI bleed, back pain, seizure, CVA, palpatations, mental health, musculoskeletal)? @ -Differential Headache: Migraine, tension, cluster, carbon monoxide, central venous thrombosis, pension karma temporal arteritis, acute closure glaucoma, intercranial hemorrhage, mastoiditis, sinusitis, head injury, this is not meant to be an all-inclusive list. EKG interpreted by me (3pts min.). @ -None X-rays interpreted by me (1pt min.). @ -None done CT interpreted by me (1pt min.). @ -None done U/S interpreted by me (1pt. min.). @ -None done What testing was considered but not performed or refused? (CT, X-rays, U/S, labs)? Why? @ -None What meds were considered but not given or refused? Why? @ -None Did you discuss the management of the patient with other professionals (professionals i.e. , PA, PIPER INSTALLER, lab, RT, psych nurse, clinical social work aide, leader tier, teacher, staff antisubmarine officer, counseling case manager)? Give summary @ -Spoke with anesthesiologist, who states they will evaluate the patient if she is a candidate for a blood patch. Anesthesiology spoke with patient and collectively decided that patient does not want to receive blood patch at this time. Was smoking cessation discussed for >3mins.? @ -No Was critical care preformed (if so, how long)? @ -No Were there social determinants of health that impacted care today? How? (Homelessness, low income, unemployed, alcoholism, drug addiction, transportation, low edu. Level, literacy, decrease access to med. care, detention, rehab)? @ -No Was there de-escalation of care discussed even if they declined (Discuss DNR or withdrawal of care, Hospice)? DNR status @ -No What co-morbidities impacted this encounter? (DM, HTN, Smoking, COPD, CAD, Cancer, CVA, ARF, Chemo, Hep., AIDS, mental health diagnosis, sleep apnea, morbid obesity)? @ -None Was patient admitted / discharged? Hospital course, mention meds given and route, prescriptions, significant lab abnormalities, going to OR and other pertinent info. @ -28-year-old female with chief complaint of headache status post epidural. Patient states that her headache is worse with standing and roation of her head. Abdominal examination unremarkable, and examination where epidural was placed reveals 1 cm area of ecchymosis with no overlying erythema. Patient was started on IV fluids with caffeine. Anesthesiologist consulted, states they will evaluate the patient for potential blood patch. At this time patient denies seizure. Will continue to use symptomatic treatment. I discussed this case with my attending Dr. Anders Planning for discharge Undiagnosed new problem with uncertain prognosis? @ -No Drug Therapy requiring intensive monitoring for toxicity (Heparin, Nitro, Insulin, Cardizem)? @ -No Were any procedures done? @ -No Diagnosis/symptom? @ -Headache post Acute, or Chronic, or Acute on Chronic? @ -Acute Uncomplicated (without systemic symptoms) or Complicated (systemic symptoms)? @ -Uncomplicated Side effects of treatment? @ -No Exacerbation, Progression, or Severe Exacerbation? @ -No Poses a threat to life or bodily function? How? (Chest pain, [place], [place], pneumonia, PE, COPD, DKA, ARF, appy, cholecystitis, CVA, Diverticulitis, Homicidal, Suicidal, threat to staff... and all critical care pts) @ -No Disposition Clinical Impression: Headache Narrative: Please return to the Emergency Department if symptoms worsen or any other concerns. Disposition: HOME SELF-CARE Condition: Good Instructions (If sedation given, give patient instructions): Acute Headache (ED) Is patient prescribed a controlled substance at d/c from ED?: No Referrals: Melchor Panda MD [Primary Care Provider] - 1-2 days Time of Disposition: 17:39
[2023-12-14] MEDS: CAFFEINE-SODIUM BENZOATE 500 MG in SODIUM CHLORIDE 0.9% 1,000 ML IVPB ONE (15:48)
--- NOTE | 2023-12-14 16:45 | P.PN ---
Progress Note - Text Asked to evaluate the patient for headache and possible blood patch. Went down to see the patient in ED. Patient had been having headache since her epidural done during of the baby on 12/06/2023. According to patient the headache is getting gradually better and tolerable. At the beginning headache used to be postural, now patient does not think headache gets any worse in standing up or sitting from laying position. As of now, pain level is 2-1/2 maximum in 0-10 scale and no postural component. Patient's neck stiffness has also almost gone. I did limited physical exam which does not show any focal neurological signs. I offered the patient epidural blood patch, discussed advantages and disadvantageous. At this time patient does not want to go through epidural blood patch as her symptoms are improving.
[2023-12-14 16:57] VITALS: TEMP 98.8
[2023-12-14 18:44] VITALS: BP 133/65; PULSE 72; RESP 16
== END 2023-12-14 18:28 | disposition home or self-care (01) ==
LOC: EC 14:00
DX: R51.9 Headache, unspecified (principal); F17.290 Nicotine dependence, other tobacco product, uncomplicated; Z88.0 Allergy status to penicillin; Z88.6 Allergy status to analgesic agent
CPT/HCPCS: 96365; 99283